=== PATIENT | male | born 1965 | race American Indian/Alaskan Native ===

== ENCOUNTER 2020-04-09 15:55 | Emergency (ER) | payer MEDICAID ==
--- NOTE | 2020-04-09 16:48 | XRay Report ---
CHEST 2 VIEWS 1621 INDICATION / CLINICAL INFORMATION: RIB PAIN AND DIFFICULTY BREATHING COMPARISON: None available. FINDINGS: SUPPORT DEVICES: None. HEART / MEDIASTINUM: No significant abnormality. LUNGS / PLEURA: Chronic changes are seen including bullous changes in the right apex. Atelectasis and possible infiltrate versus scarring is seen in the left lower lobe. Mild diffuse interstitial markin gs otherwise probably are chronic. No pleural effusions are seen. No pneumothorax. ADDITIONAL FINDINGS: No significant additional findings. IMPRESSION: Possible developing infiltrate in the left lower lobe. Recommend follow-up and clinical c orrelation. Signer Name: Sherman Garduno MD Signed: 04/09/2020 4:43 PM Workstation Name: [id number]
[2020-04-09] MEDS ORDERED: ONDANSETRON 4 MG/2 ML INJ IV ONE (16:56)
[2020-04-09] MEDS ORDERED: MORPHINE 4 MG/1 ML INJ IV ONE (16:56)
--- NOTE | 2020-04-09 17:02 | Emergency Department Report ---
ED Fall HPI - General Chief Complaint: Fall Stated Complaint: FELL DOWN STAIRS Time Seen by Provider: 04/09/20 16:36 Source: patient Mode of arrival: Wheelchair - History of Present Illness Initial Comments: Patient is 54 years old male with history of hypertension. Patient presented to the ER for evaluation after fall. Patient stated that he missed a step and he fell down the stairs approximately 8 steps. Patient is complaining of left sided chest pain, shortness of breath, left upper quadrant abdominal pain and lower back pain. Patient denied any head injury. He denied any loss of consciousness. Patient currently denying any headache, neck pain, weakness, numbness or tingling sensation. No bowel or bladder incontinence. MD Complaint: fall -: minutes(s) Fall From: down stairs (#) (8) When Fall Occurred: just prior to arrival Place Fall Occurred: home Loss of Consciousness: none Prolonged Down Time?: no Symptoms Prior to Fall: none Location: chest, abdomen Severity: moderate Severity scale (0 -10): 6 Quality: sharp Context: tripped/slipped - Related Data Allergies Allergy/AdvReac Type Severity Reaction Status Date / Time No Known Allergies Allergy Unverified 04/09/20 15:56 ED Review of Systems ROS: Stated complaint: FELL DOWN STAIRS Other details as noted in HPI Comment: All other systems reviewed and negative Constitutional: denies: chills, fever Respiratory: shortness of breath. denies: cough, SOB with exertion, wheezing Cardiovascular: chest pain Gastrointestinal: abdominal pain. denies: nausea, vomiting Musculoskeletal: back pain Neurological: denies: headache, weakness, numbness, paresthesias, confusion, abnormal gait ED Past Medical Hx - Past Medical History Hx Hypertension: Yes - Surgical History Past Surgical History?: No - Social History Smoking Status: Current Every Day Smoker Substance Use Type: Alcohol ED Physical Exam - General Limitations: No Limitations General appearance: alert, in distress - Head Head exam: Present: atraumatic, normocephalic, normal inspection - Eye Eye exam: Present: normal appearance, PERRL - ENT ENT exam: Present: normal exam, normal orophraynx, mucous membranes moist - Neck Neck exam: Present: normal inspection, full ROM. Absent: tenderness, meningismus, lymphadenopathy, thyromegaly - Respiratory Respiratory exam: Present: normal lung sounds bilaterally, chest wall tenderness. Absent: respiratory distress, wheezes, rales, rhonchi, stridor, decreased breath sounds, prolonged expiratory - Cardiovascular Cardiovascular Exam: Present: regular rate, normal rhythm, normal heart sounds - GI/Abdominal GI/Abdominal exam: Present: soft, tenderness, normal bowel sounds. Absent: distended, guarding, rebound, rigid, organomegaly, mass, bruit, pulsatile mass, hernia - Extremities Exam Extremities exam: Present: normal inspection, full ROM, normal capillary refill. Absent: pedal edema, calf tenderness - Back Exam Back exam: Present: normal inspection, full ROM. Absent: CVA tenderness (R), CVA tenderness (L), muscle spasm, paraspinal tenderness, vertebral tenderness - Neurological Exam Neurological exam: Present: alert, oriented X3, CN II-XII intact, normal gait, reflexes normal. Absent: motor sensory deficit - Psychiatric Psychiatric exam: Present: normal mood - Skin Skin exam: Present: warm, intact, normal color ED Course Vital Signs 04/09/20 15:57 Temperature 97.4 F L Pulse Rate 98 H Respiratory 20 Rate Blood Pressure 130/90 O2 Sat by Pulse 100 Oximetry ED Medical Decision Making - Lab Data Result diagrams: 04/09/20 17:01 04/09/20 17:01 - Radiology Data Radiology results: report reviewed - Medical Decision Making Patient is 54 years old male with history of hypertension. Patient presented to the ER for evaluation after fall. Patient stated that he missed a step and he fell down the stairs approximately 8 steps. Patient is complaining of left sided chest pain, shortness of breath, left upper quadrant abdominal pain and lower back pain. Patient denied any head injury. He denied any loss of consciousness. Patient currently denying any headache, neck pain, weakness, numbness or tingling sensation. No bowel or bladder incontinence. Patient remained stable in the ER with a stable vital sign. GCS of 15 all the time. Oxygen saturation of 100% on room air. CT chest showed multiple left rib fractures including eighth, ninth 10th and 11th. No pneumothorax. CT lumbar spine showed a fracture to the transfer process. No compression fracture. Patient stated that he is feeling much better after the morphine. Patient advised to follow-up with his primary doctor in the next 2 to 3 days patient also given our orthopedics on-call to follow-up with. Patient advised to return to the ER if he develop any new symptoms or if his symptoms get worse. Critical care attestation.: If time is entered above; I have spent that time in minutes in the direct care of this critically ill patient, excluding procedure time. ED Disposition Clinical Impression: Fall, Multiple rib fractures, Contusion of chest, Vertebral fracture, closed Disposition: DC-01 TO HOME OR SELFCARE Is pt being admited?: No Condition: Stable Instructions: Rib Fracture (ED), Vertebral Compression Fracture (ED) Referrals: TYESHA LINDSAY MD [Staff Physician] - 3-5 Days
[2020-04-09 18:11] LABS: Basophils % (Auto) 0.4 % (0.0-1.8); Eosinophils # (Auto) 0.1 K/mm3 (0.0-0.4); Eosinophils % (Auto) 1.4 % (0.0-4.3); Hematocrit 49.8 % (35.5-45.6); Hemoglobin 16.8 gm/dl (11.8-15.2); Lymphocytes # (Auto) 1.3 K/mm3 (1.2-5.4); Lymphocytes % (Auto) 11.9 % (13.4-35.0); Mean Corpuscular HGB Conc 34 % (32-34); Mean Corpuscular Volume 97 fl (84-94); Monocytes # (Auto) 0.7 K/mm3 (0.0-0.8); Monocytes % (Auto) 6.2 % (0.0-7.3); Platelet Count 223 K/mm3 (140-440); Red Blood Count 5.12 M/mm3 (3.65-5.03); Red Cell Distribution Width 14.2 % (13.2-15.2)
[2020-04-09 18:23] LABS: BUN/Creatinine Ratio 18; Blood Urea Nitrogen 14 mg/dL (9-20); Calcium 9.7 mg/dL (8.4-10.2); Hemolysis Index 14
--- NOTE | 2020-04-09 20:19 | Cat Scan Report ---
CT lumbar spine INDICATION: Back pain following fall tonight FINDINGS: The vertebral body heights and disc spaces are maintained. There is no compression fracture seen. No retropulsed fragments identified. There is no significant facet arthropathy. Moderately ext ensive arthritic changes of the hips are seen. There is no definite sacral fracture. There are small nondisplaced fractures through the right transverse processes of L1 and L2 however. Otherwise no sign ificant abnormality. IMPRESSION: Small right L1 and L2 transverse process fractures. Otherwise no significant abnormality. All CT scans at this location are performed using CT dose reduction for ALARA by means of automated e xposure control Signer Name: Rayshawn Lovett MD Signed: 04/09/2020 8:15 PM Workstation Name: [id number]
--- NOTE | 2020-04-09 20:28 | Cat Scan Report ---
CT of the chest without contrast INDICATION: Chest pain following fall tonight COMPARISON: None FINDINGS: No adenopathy or effusions are seen. There is no definite evidence for thoracic aortic inju ry. No mediastinal hematoma is seen. Bullae are noted at the apices right greater than left. There is a trace left pleural effusion and slight left basilar atelectasis with subcutaneous air seen over th e left lower chest wall been acute minimally displaced fracture through the left mid posterior 11th r ib. Fractures are also seen through the more lateral left eighth through 10th ribs as well. There is no pneumothorax seen. There is also atelectasis at the right lung base without definite right rib fra cture. CT of the abdomen shows no hepatic or splenic laceration. There is no hemoperitoneum in the upper abd omen. The pancreas, adrenal glands and kidneys all appear normal. No definite gallbladder or biliary tree abnormality. No fluid or adenopathy in the upper abdomen. Small hepatic cyst is incidentally not ed in the far inferior right hepatic lobe. No vascular calcification or aneurysm. Right transverse L1 and L2 process fractures are again seen. IMPRESSION: There are several left lower rib fractures with associated minimal pleural effusion but n o pneumothorax. No visceral organ injury seen. Automated exposure control was utilized to diminish radiation dose. Signer Name: Rayshawn Lovett MD Signed: 04/09/2020 8:24 PM Workstation Name: [id number]
[2020-04-09 20:59] VITALS: BP 115/74
[2020-04-09] MEDS ORDERED: MORPHINE 2 MG/1 ML INJ ONE (21:06)
[2020-04-09] MEDS ORDERED: MORPHINE 2 MG/1 ML INJ IV PRN (21:08)
== END 2020-04-09 21:30 | disposition home or self-care (01) ==
LOC: ED 15:55
DX: S32.008A Other fracture of unspecified lumbar vertebra, initial encounter for closed fracture (principal); S22.42XA Multiple fractures of ribs, left side, initial encounter for closed fracture; I10 Essential (primary) hypertension; F17.200 Nicotine dependence, unspecified, uncomplicated; W19.XXXA Unspecified fall, initial encounter; Y93.89 Activity, other specified; Y92.89 Other specified places as the place of occurrence of the external cause; Y99.8 Other external cause status
CPT/HCPCS: 36415; 71046; 71260; 72131; 74160; 80048; 85025; 86850; 86900; 86901; 96374; 96375; 96376; 99284; J2270; J2405; Q9967

== ENCOUNTER 2022-01-29 13:04 | Outpatient (CLI) | payer MEDICAID ==
--- NOTE | 2022-01-29 16:01 | XRay Report ---
Right hip 2 views INDICATION: Pain FINDINGS: Advanced degenerative change right hip with severe joint space narrowing. Subchondral cysti c change in the acetabulum and femoral head. No severe subchondral collapse. No dislocation Signer Name: Aly Dc MD Signed: 01/29/2022 3:57 PM Workstation Name: [id number]
--- NOTE | 2022-01-29 16:24 | XRay Report ---
PELVIS ONE VIEW INDICATION / CLINICAL INFORMATION: Pain and unspecified hip. COMPARISON: None available. FINDINGS: BONES and JOINT(S): No acute fracture or subluxation. The bones are demineralized. There is severe os teoarthritis of the hips, right greater than left. Mild degenerative changes are noted along the pubi c symphysis. SOFT TISSUES: There is mild bilateral iliac and left femoral atherosclerosis. No other significant ab normality. ADDITIONAL FINDINGS: None. IMPRESSION: 1. Severe osteoarthritis of the hips, right greater than left. Signer Name: Kushal Saab MD Signed: 01/29/2022 4:20 PM Workstation Name: [id number]
== END 2022-01-29 13:05 | disposition home or self-care (01) ==
LOC: XRAY 13:04
PROVIDERS: ATTEND Orthopaedic Surgery
DX: M16.0 Bilateral primary osteoarthritis of hip (principal)
CPT/HCPCS: 72170

== ENCOUNTER 2022-03-05 05:38 | Inpatient (IN) | payer MEDICAID ==
[2022-03-02 11:53] LABS: Hematocrit 41.9 % (35.5-45.6); Hemoglobin 14.2 gm/dl (11.8-15.2); Mean Corpuscular HGB Conc 34 % (32-34); Mean Corpuscular Volume 93 fl (84-94); Platelet Count 209 K/mm3 (140-440); Red Blood Count 4.52 M/mm3 (3.65-5.03); Red Cell Distribution Width 14.5 % (13.2-15.2)
[2022-03-02 12:06] LABS: BUN/Creatinine Ratio 13; Blood Urea Nitrogen 10 mg/dL (9-20); Calcium 9.5 mg/dL (8.4-10.2); Hemolysis Index 4
--- NOTE | 2022-03-02 13:58 | Anesthesia Consultation ---
Anesthesia Consult and Med Hx Date of service: 03/05/22 - Airway Anesthetic Teeth Evaluation: Good ROM Head & Neck: Adequate Mental/Hyoid Distance: Adequate Mallampati Class: Class II Intubation Access Assessment: Probably Good - Pulmonary Exam CTA: Yes - Cardiac Exam Cardiac Exam: RRR - Pre-Operative Health Status ASA Pre-Surgery Classification: ASA3 Proposed Anesthetic Plan: Spinal - Pre-Anesthesia Comment Pre-Anesthesia Comments: Discussed GA vs neuraxial; patient agreeable to neuraxial - Pulmonary Hx Smoking: Yes (1/2 PPD) Hx Respiratory Symptoms: No Hx Sleep Apnea: No (ZHAO PRE SCREEN HIGH RISK) - Cardiovascular System Hx Hypertension: Yes Hx Heart Attack/AMI: No Hx Percutaneous Transluminal Coronary Angioplasty (PTCA): No - Central Nervous System CVA: No Hx Psychiatric Problems: Yes (depression) - Endocrine Hx Renal Disease: No Hx Liver Disease: No Hx Insulin Dependent Diabetes: No Hx Non-Insulin Dependent Diabetes: No Hx Thyroid Disease: No - Other Systems Hx Obesity: No - Additional Comments Anesthesia Medical History Comments: No hx anesthetic complications. No hx anticoagulant use or known coagulopathy. No prior back surgeries.
[2022-03-05] MEDS ORDERED: ACETAMINOPHEN 500 MG TAB PO SCH (06:00)
[2022-03-05] MEDS ORDERED: LACTATED RINGERS 1,000 ML IV SCH (06:00)
[2022-03-05] MEDS ORDERED: MIDAZOLAM 2 MG/2 ML INJ IV NR (06:00)
--- NOTE | 2022-03-05 07:34 | Anesthesia Day of Surgery ---
Anesthesia Day of Surgery - Day of Surgery Patient Examined: Yes Patient H&P Reviewed: Yes Patient is NPO: Yes
[2022-03-05] MEDS ORDERED: ceFAZolin/Water 2 GM/20 ML 2 GM/20 ML SYRINGE IV NR (08:00)
[2022-03-05] MEDS ORDERED: BUPIVACAINE/PF (0.5%) 5 MG/1 ML 10 ML VIAL INFILTRATI ONE (09:00)
[2022-03-05] MEDS ORDERED: TRANEXAMIC ACID 1,000 MG/10 ML ONE ×2 (09:04→09:41)
[2022-03-05] MEDS ORDERED: KETAMINE/STERILE WATER 50 MG/ML SYRINGE ONE (09:05)
[2022-03-05] MEDS ORDERED: MIDAZOLAM 2 MG/2 ML INJ ONE (09:30)
[2022-03-05] MEDS ORDERED: propofoL 200 MG/20 ML VIAL IV ONE ×3 (09:31→11:09)
[2022-03-05] MEDS ORDERED: ePHEDrine SULFATE 50 MG/1 ML INJ ONE (09:40)
[2022-03-05] MEDS ORDERED: ACETIC ACID 3% SOLN 60 ML TP ONE (09:56)
[2022-03-05] MEDS ORDERED: SODIUM CHLORIDE 0.9% IRR 1,500 ML BOTTLE IR ONE (10:59)
[2022-03-05] MEDS ORDERED: SODIUM CHLORIDE P/F VIAL 10 ML 10 ML ONE (11:20)
[2022-03-05] MEDS ORDERED: ONDANSETRON 4 MG/2 ML INJ ONE (11:20)
[2022-03-05] MEDS ORDERED: NON-FORMULARY EACH (Ibuprofen 800 MG) PO PRN (12:00)
--- NOTE | 2022-03-05 12:23 | History and Physical Report ---
History of Present Illness Date of admission: 03/05/22 05:43 Chief complaint: My hip hurts History of present illness: 56 YO Male with MDD, HTN, Nicotine Dependence, OA admitted for right hip pain. Patient states that he has experienced pain in his right hip over the past 1 month with persistent and worsening symptoms over the same timeframe. Patient seen and evaluated by orthopedic surgery service. Patient found to have severe osteoarthritis in the right hip. Patient taken to the OR today for surgical intervention. Patient denies fever, chills, chest pain, palpitation, productive cough, skin rash, recent contact, known exposure to COVID-19. No prior admission for review. All medication listed at time of admission has been reconciled. Advanced care planning conducted. Past History Past Medical History: arthritis, hypertension Past Surgical History: total hip replacement Social history: single, smoking. denies: alcohol abuse, prescription drug abuse Family history: hypertension Medications and Allergies Allergies Allergy/AdvReac Type Severity Reaction Status Date / Time No Known Allergies Allergy Unverified 04/09/20 15:56 Home Medications Medication Instructions Recorded Confirmed Last Taken Type Ibuprofen 800 mg PO BID PRN 02/28/22 02/28/22 Unknown History Multivit-Min/Folic/Vit K/Lycop 1 each PO DAILY 02/28/22 02/28/22 Unknown History [One-A-Day Men's 50 Plus Tablet] amLODIPine [Norvasc] 10 mg PO DAILY 02/28/22 03/05/22 03/05/22 06:00 History Active Meds: Active Medications Acetaminophen (Acetaminophen 500 Mg Tab) 1,000 mg PO PREOP SYED Stop: 03/05/22 23:59 Last Admin: 03/05/22 06:50 Dose: 1,000 mg Amlodipine Besylate (Amlodipine 10 Mg Tab) 10 mg PO DAILY SYED Cefazolin Sodium (Ancef/Sterile Water 2 Gm/20 Ml) 2 gm in 20 mls @ 80 mls/hr IV PREOP NR; Protocol Stop: 03/05/22 23:59 Lactated Ringer's (Lactated Ringers) 1,000 mls @ 100 mls/hr IV DIRECT SYED Stop: 03/05/22 23:59 Last Admin: 03/05/22 06:25 Dose: 100 mls/hr Cefazolin Sodium (Ancef/Ns 1 Gm/50 Ml) 1 gm in 50 mls @ 100 mls/hr IV Q8H SYED; Protocol Midazolam HCl (Midazolam 2 Mg/2 Ml Inj) 2 mg IV PREOP NR Stop: 03/05/22 23:59 Last Admin: 03/05/22 08:30 Dose: 2 mg Miscellaneous Medication (Multivit-Min/Folic/Vit K/Lycop [One-A-Day Men's 50 Plus Tablet]) 1 each PO DAILY SYED Miscellaneous Medication (Ibuprofen) 800 mg PO BID PRN PRN Reason: Pain , Severe (7-10) Review of Systems Constitutional: no weight loss, no weight gain, no fever, no chills, no sweats Ears, nose, mouth and throat: no ear pain, no decreased hearing, no nose pain, no nasal congestion, no nasal discharge Cardiovascular: no chest pain, no orthopnea, no palpitations, no rapid/irregular heart beat, no syncope, no lightheadedness Respiratory: no cough, no cough with sputum, no excessive sputum, no hemoptysis, no shortness of breath Gastrointestinal: no abdominal pain, no nausea, no vomiting, no diarrhea, no change in bowel habits, no hematemesis Genitourinary Male: no flank pain, no discharge, no urinary frequency, no urinary hesitancy Rectal: no pain, no incontinence, no bleeding Musculoskeletal: arthritis, other (Hip pain), no neck stiffness, no shooting arm pain, no arm numbness/tingling, no low back pain, no shooting leg pain Integumentary: no rash, no pruritis, no redness, no boils Neurological: no head injury, no transient paralysis, no weakness, no numbness, no seizures, no syncope, no tremors, no ataxia Psychiatric: no memory loss, no change in sleep habits, no insomnia, no change in appetite, no change in libido, no suicidal ideation, no disorientation Endocrine: no cold intolerance, no excessive thirst, no polydipsia, no nocturia, no flushing Hematologic/Lymphatic: no easy bruising, no easy bleeding Allergic/Immunologic: no allergic rhinitis, no wheezing Exam - Constitutional Vitals: Temp Pulse Resp BP Pulse Ox 99.0 F 73 16 134/82 97 03/05/22 07:51 03/05/22 07:51 03/05/22 07:51 03/05/22 07:51 03/05/22 07:51 General appearance: Present: mild distress - EENT Eyes: Present: PERRL ENT: hearing intact, clear oral mucosa - Neck Neck: Present: supple, normal ROM - Respiratory Respiratory effort: normal Respiratory: bilateral: CTA - Cardiovascular Heart Sounds: Present: S1 & S2. Absent: rub, click - Extremities Extremities: pulses symmetrical, No edema Peripheral Pulses: within normal limits - Abdominal General gastrointestinal: Present: soft, non-tender, non-distended, normal bowel sounds Male genitourinary: Present: normal - Integumentary Integumentary: Present: clear, warm, dry - Musculoskeletal Musculoskeletal: gait normal, strength equal bilaterally - Psychiatric Psychiatric: appropriate mood/affect, intact judgment & insight - Neurologic Neurologic: CNII-XII intact, moves all extremities Results - Labs CBC & Chem 7: 03/02/22 11:30 03/02/22 11:30 Assessment and Plan - Patient Problems (1) Degenerative joint disease (DJD) of hip Current Visit: Yes Status: Acute Qualifiers: Laterality: right Plan to address problem: Hip x-ray, orthopedic surgery service consulted. Patient pending surgical intervention. Case management consulted for assist with discharge planning and placement, physical therapy consulted, pain control, supportive care. (2) Hypertension Current Visit: Yes Status: Acute Qualifiers: Hypertension type: primary hypertension Qualified Code(s): I10 - Essential (primary) hypertension Plan to address problem: Monitor blood pressure every shift, continue medical management. (3) Major depression Current Visit: Yes Status: Acute Qualifiers: Psychotic features: without psychotic features Plan to address problem: No acute exacerbation at this time, continue medical management. (4) DVT prophylaxis Current Visit: Yes Status: Acute Plan to address problem: SCD to bilateral lower extremities while in bed, therapeutic anticoagulation as per orthopedic surgery service team. (5) Advance care planning Current Visit: Yes Status: Acute Plan to address problem: Disease education done, care plan discussed, diagnoses discussed, prognosis discussed, patient is full code. Patient acknowledges understanding and agreement with care plan, +30 minutes.
[2022-03-05] MEDS ORDERED: ALBUTEROL 2.5 MG/3 ML NEBU IH PRN (13:00)
[2022-03-05] MEDS ORDERED: ONDANSETRON 4 MG/2 ML INJ IV PRN (13:00)
--- NOTE | 2022-03-05 13:10 | Operative Report ---
Operative Report Operative Report: OPERATIVE REPOPRT Preop diagnosis : Osteoarthritis, right hip Postop diagnosis: Same Procedure: Elective total hip replacement, RIGHT hip Surgeon: Lincoln Iqbal MD cataloging assistant: Dr. Blair Anesthesia: Spinal with IV conscious sedation Details of operative technique: Patient was brought to the operating room having been cleared for surgery. He was prepared in the usual fashion as per total hip protocol and underwent satisfactory spinal anesthesia and IV conscious sedation; he was placed in the decubitus position with the right hip up and all pressure points were well-padded . An axillary roll was placed under the left axilla and the hip was prepped and draped in the usual sterile fashion with ChloraPrep solution. Ancef 2 g was administered IV at the start of the case. Space suits were worn by the operating room team. A timeout was then called by the circulating nurse and the correct site was once again identified. The hip was opened through a standard anterolateral approach. Bleeders were clamped and cauterized with the Bovie. Dissection was carried down through the fibrofatty layer and the tensor fascia mk was split the length of the incision. A Charnley retractor was placed and the hip was externally rotated. The gluteus medius and minimus were removed from bone leaving a good cuff of tissue for repair. Capsule was then opened and retractors were placed at the acetabular perimeter. The femoral head which was severely deformed was removed after dislocation utilizing an oscillating saw with a template to make an accurate neck cut. The head was then sized on the back table. Acetabulum showed significant changes of osteoarthritis with an abundance of fibrous tissue infiltration. Attention was then turned toward the socket. Fibrous tissue and capsular remnants were completely removed and the boundaries of the socket were delineated. The socket was then deepened and expanded up to a size 58 mm. Patient was noted to have excellent bone with good cancellous bleeding. A 58 mm/3-hole acetabular coated shell made by [employer] (58 mm outside diameter 32 mm inside diameter) was then impacted in place with excellent interference fit. Attention was then redirected to the proximal femur. The leg was flexed up and placed into the sterile bag. A box osteotome was utilized to create a lateral starting point and the canal was then reamed beginning with a starter reamer and progressing up to a size #12. Proximal femur was then broached up to a size #12 as well. A trial reduction was then carried out utilizing the broach. Excellent press-fit stability was obtained. The actual [employer] femoral component (size 12) was then impacted in place; again excellent stability was achieved. The neck had a standard offset with a +8 neck length and a 36 mm Oxinium head. The hip was then reduced and there was noted excellent faith of leg lengths with normal stability. The hip proved to have excellent stability with the hip flexed at 90 degrees and external rotation as well as full extension with lateral rotation. Shuck test was also negative. The wound was then irrigated copiously with antibiotic solution. Closure was begun by reattaching the gluteus medius and minimus utilizing #1 Vicryl suture. The tensor fascia was then repaired with a running locking suture of 0 Vicryl and the subcu layer was closed with 0 Vicryl and 2-0 Vicryl in layers. The skin was reapproximated with a Zipline system. A sterile occlusive dressing was then applied. The patient was then awakened and taken to recovery room in excellent condition. Estimated blood loss: 100 cc Replacement: 125 cc Cell Saver; 1200 cc IV fluids Drains : None Complications: None
[2022-03-05] MEDS ORDERED: IBUPROFEN 800 MG TAB PO PRN (14:00)
--- NOTE | 2022-03-05 14:02 | XRay Report ---
XR pelvis 1-2V INDICATION / CLINICAL INFORMATION: post-op. COMPARISON: None available. FINDINGS: Post operative changes from right hip arthroplasty. No retained foreign body. Hardware is intact. No abnormal lucency surrounds hardware. Normal alignment. No acute fracture. Impression: 1. Expected postoperative changes. Signer Name: Tirso Nevarez MD Signed: 03/05/2022 1:58 PM Workstation Name: [email or web address]
--- NOTE | 2022-03-05 16:15 | Post Anesthesia Evaluation ---
- Post Anesthesia Evaluation Patient Participated: Yes Airway Patent: Yes Stable Respiratory Function: Yes Nausea/Vomiting: No Temp > 96.8F: Yes Pain Manageable: Yes Adequeate Hydration: Yes Anesthesia Complications: No Block Receding Appropriately: Yes Patient on Ventilator: No
[2022-03-05] MEDS: HYDROmorphone 1 MG/1 ML INJ IV PRN ×2 (16:39→23:42)
[2022-03-05] MEDS: oxyCODONE /ACETAMINOPHEN 5-325MG TAB PO PRN (18:02)
[2022-03-05] MEDS ORDERED: HYDROmorphone 1 MG/1 ML INJ IM ONE (21:12)
[2022-03-06] MEDS: ceFAZolin/NS 1 GM/50 ML 1 GM/50 ML BAG IV SCH ×2 (02:00→14:00)
[2022-03-06] MEDS: oxyCODONE /ACETAMINOPHEN 5-325MG TAB PO PRN ×3 (02:39→14:35)
--- NOTE | 2022-03-06 08:26 | Progress Note ---
Assessment and Plan Assessment and Plan - Patient Problems (1) Degenerative joint disease (DJD) of hip Current Visit: Yes Status: Acute Qualifiers: Laterality: right Plan to address problem: Status post surgical correction-extension pain control and supportive care. Hip x-ray, orthopedic surgery service consulted. Patient pending surgical intervention. Case management consulted for assist with discharge planning and placement, physical therapy consulted, pain control, supportive care. (2) Hypertension Current Visit: Yes Status: Acute Qualifiers: Hypertension type: primary hypertension Qualified Code(s): I10 - Essential (primary) hypertension Plan to address problem: Fairly well controlled at this time. Monitor blood pressure every shift, continue medical management. (3) Major depression Current Visit: Yes Status: Acute Qualifiers: Psychotic features: without psychotic features Plan to address problem: No acute exacerbation at this time, continue medical management. (4) DVT prophylaxis Current Visit: Yes Status: Acute Plan to address problem: SCD to bilateral lower extremities while in bed, therapeutic anticoagulation as per orthopedic surgery service team. (5) Advance care planning Current Visit: Yes Status: Acute Plan to address problem: Disease education done, care plan discussed, diagnoses discussed, prognosis discussed, patient is full code. Patient acknowledges understanding and agreement with care plan, +30 minutes. Subjective Date of service: 03/06/22 Principal diagnosis: Degenerative joint disease hip surgery. Interval history: Patient 50-year-old male presents with degenerative joint disease, hypertension and tobacco abuse. Patient presented with right hip pain severe radiating to inguinal area. Difficult to get around and perform ADLs secondary to pain. Evaluation patient was found to have severe osteoarthritis requiring surgery correction. Patient status post surgery yesterday postop day 1. Mostly complains of right hip pain consistent with recent surgery. Objective - Constitutional Vitals: Vital Signs - 12hr 03/05/22 03/05/22 03/06/22 20:40 22:09 01:35 Temperature 98.1 F Pulse Rate 89 Respiratory 20 Rate Blood Pressure 145/86 [Left] O2 Sat by Pulse 99 94 97 Oximetry 03/06/22 03:51 Temperature 97.8 F Pulse Rate 91 H Respiratory 20 Rate Blood Pressure 152/91 [Left] O2 Sat by Pulse 95 Oximetry General appearance: Present: no acute distress, well-nourished - EENT Eyes: PERRL, EOM intact ENT: hearing intact, clear oral mucosa Ears: bilateral: normal - Neck Neck: supple, normal ROM - Respiratory Respiratory effort: normal Respiratory: bilateral: CTA - Breasts Breasts: normal - Cardiovascular Rhythm: regular Heart Sounds: Present: S1 & S2. Absent: gallop, rub Extremities: pulses intact, No edema, normal color, Full ROM - Gastrointestinal General gastrointestinal: Present: soft, non-tender, non-distended, normal bowel sounds - Genitourinary Male genitourinary: normal - Integumentary Integumentary: clear, warm, dry - Musculoskeletal Musculoskeletal: strength equal bilaterally, other (Right hip bandage not evaluated. Mobilize.) - Neurologic Neurologic: moves all extremities - Psychiatric Psychiatric: memory intact, appropriate mood/affect, intact judgment & insight - Labs CBC & Chem 7: 03/02/22 11:30 03/06/22 07:46
[2022-03-06 08:33] LABS: Blood Urea Nitrogen 8 mg/dL (9-20); Calcium 8.9 mg/dL (8.4-10.2); Hemolysis Index 9
[2022-03-06 08:40] LABS: BUN/Creatinine Ratio 11
[2022-03-06] MEDS: amLODIPine 10 MG TAB PO SCH ×2 (09:14→09:15)
[2022-03-06] MEDS: ASPIRIN EC 325 MG TAB PO SCH (09:15)
[2022-03-06] MEDS: MULTIVITAMINS,THER W-MINERALS TAB PO SCH (09:16)
[2022-03-06] MEDS: HYDROmorphone 1 MG/1 ML INJ IV PRN ×2 (09:40→17:43)
[2022-03-06] MEDS ORDERED: FOLIC PO SCH (10:00)
[2022-03-06] MEDS ORDERED: LYCOP PO SCH (10:00)
[2022-03-06] MEDS ORDERED: VIT K PO SCH (10:00)
[2022-03-06] MEDS ORDERED: [UNRECOGNIZED DRUG - OTHER] PO SCH (10:00)
[2022-03-06] MEDS ORDERED: MULTIVIT MIN PO SCH (10:00)
--- NOTE | 2022-03-06 11:58 | Progress Note ---
Subjective Interval history: PROGRESS NOTE S: POD #1` ; patient lying in bed alert , no acute distress. No complaints except for postoperative pain; difficulty sleeping last night O: Leg is equal length with the opposite lower extremity; mild swelling proximal femur RIGHT hip. Dressing shows no drainage and is intact. Able to do a pa ssive heel slide with assistance. No calf pain. Able to dorsiflex the foot and ankle without difficulty. Neurovascularly intact A: Satisfactory postop course, postop day #1 for total hip arthroplasty, RIGHT HIP P: 1. continue with postop physical therapy as directed with protected weightbearing at all times and partial weightbearing with a walker or crutches; safety precautions. 2. Continue with DVT prophylaxis as directed ,to be continued for 5 weeks post-op. (Low dose Eliquis twice daily); 3. Case management for discharge planning within the next 48 hours to a correction facility for continued rehabilitation. Objective Vital signs: Vital Signs - 12hr 03/06/22 03/06/22 03/06/22 01:35 03:51 08:00 Temperature 97.8 F Pulse Rate 91 H Respiratory 20 Rate Blood Pressure 152/91 [Left] O2 Sat by Pulse 97 95 98 Oximetry - Labs CBC & BMP: 03/02/22 11:30 03/06/22 07:46 Labs: Abnormal lab results 03/06/22 Range/Units 07:46 Sodium 132 L (137-145) mmol/L BUN 8 L (9-20) mg/dL Creatinine 0.7 L (0.8-1.3) mg/dL Glucose 115 H (75-100) mg/dL
--- NOTE | 2022-03-06 14:25 | Post Anesthesia Evaluation ---
- Post Anesthesia Evaluation Patient Participated: Yes Airway Patent: Yes Stable Respiratory Function: Yes Nausea/Vomiting: No Temp > 96.8F: Yes Pain Manageable: Yes Adequeate Hydration: Yes Anesthesia Complications: No Block Receding Appropriately: Yes Patient on Ventilator: No Other Comments: patient has not ambulated yet
[2022-03-06] MEDS: HYDROmorphone 1 MG/1 ML INJ IM PRN (21:23)
[2022-03-06] MEDS: oxyCODONE 5 MG TAB PO PRN (23:19)
[2022-03-07] MEDS: ACETAMINOPHEN 325 MG TAB PO PRN ×2 (06:08→22:03)
[2022-03-07] MEDS: HYDROmorphone 1 MG/1 ML INJ IM PRN ×2 (06:08→16:22)
--- NOTE | 2022-03-07 07:50 | Progress Note ---
Assessment and Plan Assessment and Plan - Patient Problems (1) Degenerative joint disease (DJD) of hip Current Visit: Yes Status: Acute Qualifiers: Laterality: right Plan to address problem: Status post surgical correction-extension pain control and supportive care. Hip x-ray, orthopedic surgery service consulted. Patient pending surgical intervention. Case management consulted for assist with discharge planning and placement, physical therapy consulted, pain control, supportive care. (2) fever Just one episode of elevated temp. No cough no dysuria. No evidence of tenderness or pain around surgical site. No discharge around surgical site. Could be secondary to medication interaction. But no evidence of infection at this time. Will obtain blood cultures chest x-ray urine cultures to evaluate possible etiology. (2) Hypertension Current Visit: Yes Status: Acute Qualifiers: Hypertension type: primary hypertension Qualified Code(s): I10 - Essential (primary) hypertension Plan to address problem: Fairly well controlled at this time. Monitor blood pressure every shift, continue medical management. (3) Major depression Current Visit: Yes Status: Acute Qualifiers: Psychotic features: without psychotic features Plan to address problem: No acute exacerbation at this time, continue medical management. (4) DVT prophylaxis Current Visit: Yes Status: Acute Plan to address problem: SCD to bilateral lower extremities while in bed, therapeutic anticoagulation as per orthopedic surgery service team. (5) Advance care planning Current Visit: Yes Status: Acute Plan to address problem: Disease education done, care plan discussed, diagnoses discussed, prognosis discussed, patient is full code. Patient acknowledges understanding and agreement with care plan, +30 minutes. Subjective Date of service: 03/07/22 Principal diagnosis: Degenerative joint disease hip surgery. Interval history: Patient 50-year-old male presents with degenerative joint disease, hypertension and tobacco abuse. Patient presented with right hip pain severe radiating to inguinal area. Difficult to get around and perform ADLs secondary to pain. Evaluation patient was found to have severe osteoarthritis requiring surgery correction. Patient status post surgery yesterday postop day 1. Mostly complains of right hip pain consistent with recent surgery. 03/07/2022 Hospital course complicated by fever of 102 and 101 this morning. Pain better controlled with changes in intervals and pain medication. Patient much improved look better. Currently work-up fever at this time. Afebrile now. Objective - Constitutional Vitals: Vital Signs - 12hr 03/06/22 03/06/22 03/07/22 21:59 22:03 05:09 Temperature 99.0 F 102.0 F H Pulse Rate 89 96 H Respiratory 18 18 Rate Blood Pressure 137/81 122/77 O2 Sat by Pulse 92 88 95 Oximetry 03/07/22 05:58 Temperature 101.1 F H Pulse Rate Respiratory Rate Blood Pressure O2 Sat by Pulse Oximetry General appearance: Present: no acute distress, well-nourished - EENT Eyes: PERRL, EOM intact ENT: hearing intact, clear oral mucosa Ears: bilateral: normal - Neck Neck: supple, normal ROM - Respiratory Respiratory effort: normal Respiratory: bilateral: CTA - Breasts Breasts: normal - Cardiovascular Rhythm: regular Heart Sounds: Present: S1 & S2. Absent: gallop, rub Extremities: pulses intact, No edema, normal color, Full ROM - Gastrointestinal General gastrointestinal: Present: soft, non-tender, non-distended, normal bowel sounds - Genitourinary Male genitourinary: normal - Integumentary Integumentary: clear, warm, dry - Musculoskeletal Musculoskeletal: strength equal bilaterally, other (Leg no evidence of infection around surgical site. Cool to touch. No exudate.) - Neurologic Neurologic: moves all extremities - Psychiatric Psychiatric: memory intact, appropriate mood/affect, intact judgment & insight - Labs CBC & Chem 7: 03/07/22 08:57 03/07/22 08:57 Labs: Abnormal lab results 03/06/22 Range/Units 07:46 Sodium 132 L (137-145) mmol/L BUN 8 L (9-20) mg/dL Creatinine 0.7 L (0.8-1.3) mg/dL Glucose 115 H (75-100) mg/dL
[2022-03-07 09:13] LABS: Basophils # (Auto) 0.1 K/mm3 (0.0-0.1); Eosinophils # (Auto) 0.4 K/mm3 (0.0-0.4); Eosinophils % (Auto) 3.3 % (0.0-4.3); Hematocrit 38.3 % (35.5-45.6); Hemoglobin 13.4 gm/dl (11.8-15.2); Lymphocytes # (Auto) 1.7 K/mm3 (1.2-5.4); Lymphocytes % (Auto) 15.8 % (13.4-35.0); Mean Corpuscular HGB Conc 35 % (32-34); Mean Corpuscular Volume 91 fl (84-94); Monocytes # (Auto) 0.7 K/mm3 (0.0-0.8); Monocytes % (Auto) 6.8 % (0.0-7.3); Platelet Count 201 K/mm3 (140-440); Red Blood Count 4.22 M/mm3 (3.65-5.03); Red Cell Distribution Width 14.1 % (13.2-15.2)
--- NOTE | 2022-03-07 09:15 | XRay Report ---
CHEST 1 VIEW INDICATION: sob. COMPARISON: 04/09/2020 FINDINGS: Support devices: None. Heart: Within normal limits. Lungs/Pleura: No acute air space or interstitial disease. Minor discoid atelectasis has developed in the lingula and middle lobe. No pleural effusion or pneumothorax. Additional findings: None. IMPRESSION: No acute findings. Minor atelectatic changes as described. Signer Name: Larry Jung Jr, MD Signed: 03/07/2022 9:11 AM Workstation Name: [id number]
[2022-03-07 09:36] LABS: Alanine Aminotransferase 15 units/L (7-56); Albumin 3.3 g/dL (3.9-5); BUN/Creatinine Ratio 11; Blood Urea Nitrogen 9 mg/dL (9-20); Hemolysis Index 5
[2022-03-07] MEDS: oxyCODONE 5 MG TAB PO PRN (10:36)
[2022-03-07] MEDS: amLODIPine 10 MG TAB PO SCH (10:37)
[2022-03-07] MEDS: ASPIRIN EC 325 MG TAB PO SCH (10:37)
[2022-03-07] MEDS: MULTIVITAMINS,THER W-MINERALS TAB PO SCH (10:37)
--- NOTE | 2022-03-07 11:09 | Progress Note ---
Subjective Date of service: 03/07/22 Principal diagnosis: Degenerative joint disease hip surgery. Interval history: PROGRESS NOTE S: POD #2 ` ; patient lying in bed alert , no acute distress. No new complaints except for postoperative pain; O: Leg is equal length with the opposite lower extremity; mild swelling proximal femur RIGHT hip. Occlusive dressing shows no drainage and is intact. Able to do straight leg raise with assistance. Neurovascularly intact; elevated temp with no clear-cut etiology. A: Satisfactory postop course, postop day #2 for P: 1. I spoke in person with Dr. Wally godinezing the temperature spike early this morning. This will delay discharge for at least 24 hours. Continue with postop physical therapy as directed with protected weightbearing at all times and partial weightbearing with a walker or crutches; safety precautions. Continue with DVT prophylaxis as directed ,to be continued for 5 weeks post-op. The patient now wants to be discharged home to be cared for by his significant other; therefore, home health physical therapy and nursing care will be ordered Objective Vital signs: Vital Signs - 12hr 03/07/22 03/07/22 03/07/22 05:09 05:28 05:58 Temperature 102.0 F H 101.1 F H Pulse Rate 96 H Respiratory 18 Rate Blood Pressure 122/77 O2 Sat by Pulse 95 97 Oximetry 03/07/22 08:34 Temperature Pulse Rate Respiratory Rate Blood Pressure O2 Sat by Pulse 99 Oximetry - Labs CBC & BMP: 03/07/22 08:57 03/07/22 08:57 Labs: Abnormal lab results 03/07/22 03/07/22 Range/Units 08:57 08:57 MCHC 35 H (32-34) % Seg Neutrophils % 73.1 H (40.0-70.0) % Seg Neutrophils # 8.0 H (1.8-7.7) K/mm3 Sodium 131 L (137-145) mmol/L Chloride 96.2 L (98-107) mmol/L Glucose 132 H (75-100) mg/dL Albumin 3.3 L (3.9-5) g/dL
[2022-03-08] MEDS: oxyCODONE 5 MG TAB PO PRN ×3 (00:43→21:50)
[2022-03-08] MEDS: ASPIRIN EC 325 MG TAB PO SCH (09:55)
[2022-03-08] MEDS: MULTIVITAMINS,THER W-MINERALS TAB PO SCH (09:56)
[2022-03-08] MEDS: amLODIPine 10 MG TAB PO SCH (09:56)
[2022-03-08 10:34] LABS: Basophils # (Auto) 0.1 K/mm3 (0.0-0.1); Basophils % (Auto) 0.8 % (0.0-1.8); Eosinophils # (Auto) 0.7 K/mm3 (0.0-0.4); Hematocrit 37.2 % (35.5-45.6); Hemoglobin 12.4 gm/dl (11.8-15.2); Lymphocytes # (Auto) 1.4 K/mm3 (1.2-5.4); Mean Corpuscular HGB Conc 33 % (32-34); Mean Corpuscular Volume 92 fl (84-94); Monocytes # (Auto) 0.8 K/mm3 (0.0-0.8); Monocytes % (Auto) 7.7 % (0.0-7.3); Platelet Count 211 K/mm3 (140-440); Red Blood Count 4.04 M/mm3 (3.65-5.03)
--- NOTE | 2022-03-08 10:52 | Progress Note ---
Assessment and Plan Assessment and Plan - Patient Problems (1) Degenerative joint disease (DJD) of hip Current Visit: Yes Status: Acute Qualifiers: Laterality: right Plan to address problem: Status post surgical correction-extension pain control and supportive care. Hip x-ray, orthopedic surgery service consulted. Patient pending surgical intervention. Case management consulted for assist with discharge planning and placement, physical therapy consulted, pain control, supportive care. (2) fever Just one episode of elevated temp. patient now has significant dysuria. UA micro with urine culture still pending. Most likely etiology of fever is urine at this particular time. Once this has been established we will discharge. No evidence of tenderness or pain around surgical site. No discharge around surgical site. Could be secondary to medication interaction. But no evidence of infection at this time. Will obtain blood cultures chest x-ray urine cultu res to evaluate possible etiology. (2) Hypertension Current Visit: Yes Status: Acute Qualifiers: Hypertension type: primary hypertension Qualified Code(s): I10 - Essential (primary) hypertension Plan to address problem: Fairly well controlled at this time. Monitor blood pressure every shift, continue medical management. (3) Major depression Current Visit: Yes Status: Acute Qualifiers: Psychotic features: without psychotic features Plan to address problem: No acute exacerbation at this time, continue medical management. (4) DVT prophylaxis Current Visit: Yes Status: Acute Plan to address problem: SCD to bilateral lower extremities while in bed, therapeutic anticoagulation as per orthopedic surgery service team. (5) Advance care planning Current Visit: Yes Status: Acute Plan to address problem: Disease education done, care plan discussed, diagnoses discussed, prognosis discussed, patient is full code. Patient acknowledges understanding and agreement with care plan, +30 minutes. Subjective Date of service: 03/08/22 Principal diagnosis: Degenerative joint disease hip surgery. Interval history: Patient 50-year-old male presents with degenerative joint disease, hypertension and tobacco abuse. Patient presented with right hip pain severe radiating to inguinal area. Difficult to get around and perform ADLs secondary to pain. Evaluation patient was found to have severe osteoarthritis requiring surgery correction. Patient status post surgery yesterday postop day 1. Mostly complains of right hip pain consistent with recent surgery. 03/07/2022 Hospital course complicated by fever of 102 and 101 this morning. Pain better controlled with changes in intervals and pain medication. Patient much improved look better. Currently work-up fever at this time. Afebrile now. 03/08/2022. Only low-grade temp overnight of 99. Patient pain better controlled. Much improved. Patient complains of dysuria. Work-up of fever essentially unremarkable at this point. Chest x-ray negative, fever curve is come down, blood work unremarkable, culture data no growth so far Most likely etiology is UTI at this particular time UA and micro still pending. Patient has significant dysuria. Objective - Constitutional Vitals: Vital Signs - 12hr 03/07/22 03/08/22 03/08/22 23:03 00:43 01:43 Temperature Pulse Rate Respiratory 18 18 18 Rate Blood Pressure O2 Sat by Pulse Oximetry 03/08/22 03/08/22 03/08/22 04:43 08:06 09:56 Temperature 99.1 F Pulse Rate 78 72 Respiratory 18 Rate Blood Pressure 135/68 110/64 O2 Sat by Pulse 90 97 Oximetry General appearance: Present: no acute distress, well-nourished - EENT Eyes: PERRL, EOM intact ENT: hearing intact, clear oral mucosa Ears: bilateral: normal - Neck Neck: supple, normal ROM - Respiratory Respiratory effort: normal Respiratory: bilateral: CTA - Breasts Breasts: normal - Cardiovascular Rhythm: regular Heart Sounds: Present: S1 & S2. Absent: gallop, rub Extremities: pulses intact, No edema, normal color, Full ROM - Gastrointestinal General gastrointestinal: Present: soft, non-tender, non-distended, normal bowel sounds - Genitourinary Male genitourinary: normal - Integumentary Integumentary: clear, warm, dry - Musculoskeletal Musculoskeletal: 1, strength equal bilaterally - Neurologic Neurologic: moves all extremities - Psychiatric Psychiatric: memory intact, appropriate mood/affect, intact judgment & insight - Labs CBC & Chem 7: 03/08/22 10:02 03/07/22 08:57 Labs: Abnormal lab results 03/08/22 Range/Units 10:02 Lymph % (Auto) 13.0 L (13.4-35.0) % [place] % (Auto) 7.7 H (0.0-7.3) % Eos % (Auto) 6.0 H (0.0-4.3) % Eos # (Auto) 0.7 H (0.0-0.4) K/mm3 Seg Neutrophils % 72.5 H (40.0-70.0) % Seg Neutrophils # 7.9 H (1.8-7.7) K/mm3
[2022-03-08] MEDS: HYDROmorphone 1 MG/1 ML INJ IM PRN (17:30)
[2022-03-09] MEDS: oxyCODONE 5 MG TAB PO PRN ×2 (05:45→10:49)
[2022-03-09] MEDS: MULTIVITAMINS,THER W-MINERALS TAB PO SCH (09:23)
[2022-03-09] MEDS: amLODIPine 10 MG TAB PO SCH (09:23)
[2022-03-09] MEDS: ASPIRIN EC 325 MG TAB PO SCH (09:23)
--- NOTE | 2022-03-09 10:12 | Progress Note ---
Subjective Date of service: 03/09/22 Principal diagnosis: Degenerative joint disease hip surgery. Interval history: PROGRESS NOTE S: POD #4 ; patient lying in bed alert , no acute distress. No complaints except for postoperative pain; he states that the old arthritis pain is gone O: Leg is equal length with the opposite lower extremity; mild swelling proximal femur left hip. Dressing shows no drainage and is intact. Able to do straight leg raise with assistance. Neurovascularly intact A: Satisfactory postop course, postop day #4 for total hip replacement, RIGHT hip P: 1. continue with postop physical therapy as directed with protected weightbearing at all times with a walker (or crutches); safety precautions. Able to be discharged to the [facility] facility they. Continue with DVT prophylaxis as directed , (eliquis BID X 5 weeks) to be continued for 5 weeks post-op. Office in 2 weeks for follow-up. Only 2 meds will he need for transfer to SNF : 1) Lortab 5/325 1 po Q 6 hrs prn pain 2) Eliquis 2.5 mg BID X 5 weeks Objective Vital signs: Vital Signs - 12hr 03/08/22 03/09/22 03/09/22 22:50 04:16 09:35 Temperature 99.1 F Pulse Rate 78 Respiratory 16 16 Rate Blood Pressure 121/83 O2 Sat by Pulse 95 97 Oximetry - Labs CBC & BMP: 03/08/22 10:02 03/07/22 08:57 Labs: Abnormal lab results 03/08/22 Range/Units 10:02 Lymph % (Auto) 13.0 L (13.4-35.0) % [place] % (Auto) 7.7 H (0.0-7.3) % Eos % (Auto) 6.0 H (0.0-4.3) % Eos # (Auto) 0.7 H (0.0-0.4) K/mm3 Seg Neutrophils % 72.5 H (40.0-70.0) % Seg Neutrophils # 7.9 H (1.8-7.7) K/mm3
--- NOTE | 2022-03-09 11:07 | Discharge Summary ---
Providers - Providers Date of Admission: 03/05/22 05:43 Date of discharge: 03/09/22 Attending physician: RAS GALVEZ 03/05/22 12:02 Physical Therapy Evaluation and Treat [CONS] Urgent Comment: Reason For Exam: post-op THR surgery Mode of Transport?: Walker Weight bearing status?: Partial wt bearing Assistive devices?: Yes: may use crutches or walker If so list: Crutches Date of last referral: 03/05/22 03/05/22 12:25 Consult to Physician [CONS] Routine Comment: Consulting Provider: TRUDY LOWE Physician Instructions: Reason For Exam: djd 03/05/22 12:36 Consult to Case Management [CONS] Routine Services Needed at Discharge: Home Health Services Physical Therapy Notified:: ERMA 03/06/22 11:58 Consult to Case Management [CONS] Routine Services Needed at Discharge: Home Health Services Physical Therapy Notified:: erma notified Comment:: Discharge to SNF 03/07/22 11:09 Consult to Case Management [CONS] Routine Services Needed at Discharge: Home Health Services Physical Therapy Other Notified:: erma 03/07/22 11:50 Occupational Therapy Evaluate and Treat [CONS] Stat Comment: Reason For Exam: ADL training Primary care physician: [employer] Hospitalization Reason for admission: DJD hip Hospital course: Patient 50-year-old male presents with degenerative joint disease, hypertension and tobacco abuse. Patient presented with right hip pain severe radiating to inguinal area. Difficult to get around and perform ADLs secondary to pain. Evaluation patient was found to have severe osteoarthritis requiring surgery correction. Patient status post surgery yesterday postop day 1. Mostly complains of right hip pain consistent with recent surgery. Hospital course: 03/07/2022 Hospital course complicated by fever of 102 and 101 this morning. Pain better controlled with changes in intervals and pain medication. Patient much improved look better. Currently work-up fever at this time. Afebrile now. 03/08/2022. Only low-grade temp overnight of 99. Patient pain better controlled. Much improved. Patient complains of dysuria. Work-up of fever essentially unremarkable at this point. Chest x-ray negative, fever curve is come down, blood work unremarkable, culture data no growth so far 03/09/2022. Orthopedics recommends to continue postop physical therapy as directed with protected weightbearing at all times with a walker (or crutches); safety precautions. Continue with DVT prophylaxis as directed , (eliquis BID X 5 weeks) to be continued for 5 weeks post-op. Office in 2 weeks for follow-up. The patient was discharged with Lortab and Eliquis. Dedicated discharge time 35 minutes Disposition: 03 [facility] Final Discharge Diagnosis (Prints w/discharge instructions): DJD, hypertension, major depression Core Measure Documentation - Palliative Care Palliative Care/ Comfort Measures: Not Applicable - Core Measures Any of the following diagnoses?: none Exam - Constitutional Vitals: Temp Pulse Resp BP Pulse Ox 99.1 F 78 16 121/83 97 03/09/22 04:16 03/09/22 04:16 03/09/22 04:16 03/09/22 04:16 03/09/22 09:35 General appearance: Present: no acute distress, well-nourished - EENT Eyes: Present: PERRL ENT: hearing intact, clear oral mucosa - Neck Neck: Present: supple, normal ROM - Respiratory Respiratory effort: normal Respiratory: bilateral: CTA - Cardiovascular Heart Sounds: Present: S1 & S2. Absent: rub, click - Extremities Extremities: pulses symmetrical, No edema Peripheral Pulses: within normal limits - Abdominal General gastrointestinal: Present: soft, non-tender, non-distended, normal bowel sounds Male genitourinary: Present: normal - Integumentary Integumentary: Present: clear, warm, dry - Musculoskeletal Musculoskeletal: gait normal, strength equal bilaterally - Psychiatric Psychiatric: appropriate mood/affect, intact judgment & insight - Neurologic Neurologic: CNII-XII intact, moves all extremities Plan Activity: advance as tolerated Weight Bearing Status: Weight Bear as Tolerated Diet: regular Follow up with: PRIMARY CARE, [Primary Care Provider] - 7 Days Prescriptions: Apixaban [Eliquis] 2.5 mg PO BID 35 Days #70 oxyCODONE /ACETAMINOPHEN [Percocet 5/325] 1 tab PO Q4HR #10 tab
[2022-03-09 13:23] VITALS: BP 122/68
== END 2022-03-09 13:30 | DRG 470 ==
LOC: 3A 05:43
PROVIDERS: ADMIT Orthopaedic Surgery; ATTEND Hospitalist
PROC: 0SR906A Replacement of Right Hip Joint with Oxidized Zirconium on Polyethylene Synthetic Substitute, Uncemented, Open Approach (ICD-10-PCS; principal; 2022-03-05)
DX: M16.11 Unilateral primary osteoarthritis, right hip (principal); Z20.822 Contact with and (suspected) exposure to COVID-19; I10 Essential (primary) hypertension; F32.9 Major depressive disorder, single episode, unspecified; Z82.49 Family history of ischemic heart disease and other diseases of the circulatory system; Z87.891 Personal history of nicotine dependence; R50.82 Postprocedural fever
CPT/HCPCS: 36415; 71045; 72170; 80048; 80053; 85025; 85027; 86850; 86900; 86901; 87040; 87086; 88304; 88311; 94760; G0378; J3490; J7120; J7121; C1776; J0690; J1170; J2250; J2405; J2704; U0003